=== PATIENT | female | born 1955 | race Two or more races ===

== ENCOUNTER 2018-10-27 15:15 | Emergency (ER) | payer OTHER ==
[~2018-10-27] VITALS: Ht 165.1 cm; Wt 68.0 kg
== END 2018-10-27 21:09 | disposition home or self-care (01) ==
LOC: ER 15:15
DX: S93.492A Sprain of other ligament of left ankle, initial encounter (principal); W18.39XA Other fall on same level, initial encounter; Y93.89 Activity, other specified; Y92.821 Forest as the place of occurrence of the external cause; Y99.8 Other external cause status